=== PATIENT | male | born 1950 | race African-American/Black ===

== ENCOUNTER → 2020-09-21 | Outpatient (CLI) | payer OTHER ==
[~2020-09-21] MED LIST: ALIGN4 MG PO; ALLERGY INJECTIONS SUBQ; ASPIRIN81 M2 PO; AVODART0.5 MG PO; CALCIUM 500 +1 EAC4 PO; CALCIUM 500 +1 EACH PO; CELEXA 10 MG TA10 M1 PO; CELEXA 20 MG TA20 MG PO; CLARINEX5 MG PO; COQ-10100 MG PO; DUTASTERIDE0.5 MG PO; FISH OIL 1,0001 EAC8 PO; FLOMAX0.4 MG PO; FOCUS FACTOR PO; JUICE PLUS PO; LOVASTAT40 PO; MULTIVITAMINS1 EAC7 PO; TAMSULOSIN HCL0.4 M1 PO; TOPROL XL50 MG PO; VITAMIN D350 MC3 PO; ZYRTEC10 M5 PO
== END ==
LOC: LAB 09:00
PROVIDERS: ATTEND Specialist
DX: Z01.812 Encounter for preprocedural laboratory examination (principal); Z20.822 Contact with and (suspected) exposure to COVID-19

== ENCOUNTER → 2020-09-26 | Outpatient (CLI) | payer OTHER ==
[~2020-09-26] VITALS: Ht 182.9 cm; Wt 97.5 kg
--- NOTE | ~2020-09-26 | P ---
[facility] [place] [address] PROCEDURE REPORT Name: JAS RASHEED Room #: REG [facility].#: [id number] Admission: 09/26/20 Attend Phys: Eyad Eddy Discharge: Date of : 50 Report #: [id number] THIS REPORT FOR: cc: Paul West MD, Steven E. MD McElhinney, Christian C. MD ~ DOC #: [id number] cc: MD Eyad Yi MD DATE OF SERVICE: 09/26/2020 PROCEDURE PERFORMED: Colonoscopy with biopsies. HISTORY OF PRESENT ILLNESS: The patient is a 70-year-old male who reports change in bowel habits, more frequent stools, now averaging 3-4 per day. They tend to be smaller in diameter and smaller in general. Denies any blood in his stools. He does report some mild abdominal discomfort at times. No family history of colon cancer. Last colonoscopy was in 2014, hyperplastic polyp was removed at that time. DESCRIPTION OF PROCEDURE: The risks and benefits of the procedure were explained to the patient. Those risks including but not limited to bleeding, perforation and the risk of sedation. He understood these risks and gave informed consent. Sedation was given using propofol per anesthesia. Next, a digital rectal exam was initially performed, which was normal. Next, using a standard Olympus colonoscope, the scope was placed in the patient's anus and advanced under direct vision to the cecum. The overall prep was excellent. The cecum and ileocecal valve were normal in appearance. Terminal ileum was intubated and normal in appearance. Ascending, transverse and descending colon were normal. Random biopsies were obtained today to rule out the possibility of microscopic colitis. In the sigmoid colon, a 3-mm sessile polyp was noted. This was removed with cold forceps. The rectal mucosa was normal. On retroflexion, small nonbleeding internal hemorrhoids were noted. Close examination of the anal canal again showed small internal hemorrhoids, otherwise normal. No evidence of anal fissure. The scope was then withdrawn and the procedure terminated. The patient tolerated the procedure well. IMPRESSION: 1. Small colonic polyp. 2. Small internal hemorrhoids. 3. Otherwise, normal colonoscopy. RECOMMENDATIONS: 1. Await biopsy results. 2. If polyp is hyperplastic, repeat in 10 years; if adenomatous polyp, repeat [address] [address] PROCEDURE REPORT Name: JAS RASHEED Room #: REG [facility] Barth#: [id number] Admission: 09/26/20 Attend Phys: Eyad Eddy Discharge: Date of : 50 Report #: [id number] in 5 years. 3. Would recommend a trial of daily fiber at this time. Thank you for allowing me to participate in his care. Eyad Henderson MD CCM/ANAHI By: 1017 22 Eyad Henderson MD /nt
--- NOTE | 2020-09-28 18:06 | PATH ---
[facility] [address] [place] [address] PATHOLOGY RPT PROCEDURE Name: WILIJAS E Room #: REG [facility] Barth#: [id number] Admission: 09/26/20 Date of : 50 Discharge: Report #: [id number] Path Case #: [id number] [facility] Accession Number: [id number] . 01 Material submitted: . PART A: colon - RANDOM BX-R/O MICROSCOPIC COLITIS PART B: sigmoid colon - SIGMOID COLON POLYP . 01 Clinical history: . ABD PAIN R/O MICROSCOPIC COLITIS . 02 Diagnosis: A. Large intestine mucosa, random R/O microscopic colitis, endoscopic biopsy: - Mild focal acute colitis. - Negative for dysplasia or malignancy. . B. Polyp, sigmoid colon polyp, endoscopic biopsy: - Hyperplastic polyp. - Negative for dysplasia. (IUV:chicho; 09/28/2020) QMS 09/28/2020 1602 Local . 02 Comment: A. Sections of the colonic mucosa designated "random colon" show focal cryptitis, and a moderately cellular lamina propria composed predominantly of lymphocytes and plasma cells and occasional eosinophils. Surface ulceration is not identified. There are no crypt abscesses, granulomas or viral inclusions. The process affects all the fragments with a similar intensity. Given the description, the differential diagnosis includes focal acute self limited episode of colitis, infectious-type of colitis, medication/drug induced colitis, as well as resolving acute episode of diverticulitis. Please correlate with clinical as well as endoscopic findings. (IUV:chicho; 09/28/2020) . 02 Electronically signed: . Vanessa Pimentel MD, Pathologist NPI- [id number] . 01 Gross description: . A. The specimen is received in formalin, labeled "Jasdenisa Rasheed, random biopsy, R/O microscopic colitis". Received are four segments of pale tolbert tissue ranging in size from 0.3-0.5 cm in maximum dimensions. The specimen is submitted entirely in cassette A1[place] [address] PATHOLOGY RPT PROCEDURE Name: JAS RASHEED [facility] [id number] Admission: 09/26/20 Date of : 50 Discharge: Report #: [id number] Path Case #: [id number] B. The specimen is received in formalin, labeled "Jas Rasheed, sigmoid colon polyp". Received are two segments of pale tolbert tissue measuring 0.3 and 0.4 cm in maximum dimensions. The specimen is submitted entirely in cassette B1. (CAA; 09/27/2020) QAC/QAC 09/27/2020 1547 Local . 02 Pathologist provided ICD-10: K52.9, K63.5 . 02 CPT . 020319, [id number] Specimen Comment: A courtesy copy of this report has been sent to [phone], [phone] Specimen Comment: [phone] Specimen Comment: Report sent to / DR CANSECO Performed at: [address], [place] [id number] MD Venkata Frank MD Phone: [phone] Performed at: [address] [id number] MD Vanessa Pimentel MD Phone: [phone]
== END | disposition home or self-care (01) ==
LOC: GI 09:08
PROVIDERS: ATTEND Specialist
DX: R19.4 Change in bowel habit (principal); K63.5 Polyp of colon; K52.9 Noninfective gastroenteritis and colitis, unspecified; K64.8 Other hemorrhoids; F32.9 Major depressive disorder, single episode, unspecified; F41.9 Anxiety disorder, unspecified; G47.30 Sleep apnea, unspecified; Z98.890 Other specified postprocedural states; Z79.899 Other long term (current) drug therapy
CPT/HCPCS: 62110; 62900